=== PATIENT | male | born 1995 | race Caucasian/White ===

== ENCOUNTER 2018-05-27 22:34 | Emergency (ER) | payer OTHER ==
[2018-05-27 22:41] VITALS: BP 132/54; PULSE 81; TEMP 98.3; BMI 27.2
--- NOTE | 2018-05-27 22:55 | PDOC ---
History of Present Illness - General Chief Complaint: Bite Stated Complaint: INSECT BITE Time Seen by Provider: 05/27/18 22:51 - History of Present Illness Initial Comments: 05/27/18 22:53 22 yo M with no significant pmh who p/w bug bite to left chest. Patient reports noticing what he believs was a tick attached to left lateral chest wall approximately 40 minutes [employer]. Attempted removal with tweezers, but states that the head of the bug became impacted in skin. No complaints. Patient denies CORREA, vision change, palpitations, cough, wheezing, orthopena, PND , leg swelling/pain, N/V, F,C, CP, SOB, urinary complaints, hematuria, BPR, abdominal pain, diarrhea, constipation, lightheadedness, weakness, sensory changes. PMHx: as noted above ROS: as noted Allergies: NKDA Past History - Past Medical History Allergies/Adverse Reactions: Allergies Allergy/AdvReac Type Severity Reaction Status Date / Time lactose Allergy Verified 05/27/18 22:41 Home Medications: Ambulatory Orders NK [No Known Home Medication] 05/27/18 COPD: No - Immunization History Immunization Up to Date: Yes - Suicide/Smoking/Psychosocial Hx Smoking History: Never smoked Hx Alcohol Use: No Drug/Substance Use Hx: No Review of Systems - Review of Systems Comments:: 05/27/18 22:54 GENERAL/CONSTITUTIONAL: No fever or chills. No weakness. HEAD, EYES, EARS, NOSE AND THROAT: No change in vision. No ear pain or discharge. No sore throat. CARDIOVASCULAR: No chest pain or shortness of breath RESPIRATORY: No cough, wheezing, or hemoptysis. GASTROINTESTINAL: No nausea, vomiting, diarrhea or constipation. GENITOURINARY: No dysuria, frequency, or change in urination. MUSCULOSKELETAL: No joint or muscle swelling or pain. No neck or back pain. SKIN: No rash NEUROLOGIC: No headache, vertigo, loss of consciousness, or change in strength/ sensation. ENDOCRINE: No increased thirst. No abnormal weight change HEMATOLOGIC/LYMPHATIC: No anemia, easy bleeding, or history of blood clots. ALLERGIC/IMMUNOLOGIC: No hives or skin allergy. *Physical Exam - Vital Signs Last Vital Signs Temp Pulse Resp BP Pulse Ox 98.3 F 81 14 132/54 L 96 05/27/18 22:39 05/27/18 22:39 05/27/18 22:39 05/27/18 22:39 05/27/18 22:39 - Physical Exam Comments: 05/27/18 22:54 GENERAL: Awake, alert, and fully oriented, in no acute distress HEAD: No signs of trauma, normocephalic, atraumatic EYES: PERRLA, EOMI, sclera anicteric, conjunctiva clear ENT: Auricles normal inspection, hearing grossly normal, nares patent, oropharynx clear without exudates. Moist mucosa NECK: Normal ROM, supple, no lymphadenopathy, JVD, or masses LUNGS: No distress, speaks full sentences, clear to auscultation bilaterally HEART: Regular rate and rhythm, normal S1 and S2, no murmurs, rubs or gallops, peripheral pulses normal and equal bilaterally. ABDOMEN: Soft, nontender, normoactive bowel sounds. No guarding, no rebound. No masses EXTREMITIES : Normal inspection, Normal range of motion, no edema. No clubbing or cyanosis. NEUROLOGICAL: Cranial nerves II through XII grossly intact. Normal speech, normal gait, no focal sensorimotor deficits SKIN: +1 mm incision with retained insect part in left inframmamary, lateral, chest wall. slight marginal ertyhema, with absent fluctuance, discharge/ drainage. Warm, Dry, normal turgor, no rashes noted. Medical Decision Making - Medical Decision Making 05/27/18 23:22 22 yo M with no significant pmh who p/w bug bite to left chest. Vitals wnl, Af, A&Ox3. Physical exam notable for impacted head of insect in 1 mm incision in left inframmamary, lateral, chest wall, with retained insect. slight marginal ertyhema, with absent fluctuance, discharge/drainage. No evidence of systemic symptoms, tick born illness. Denies Rash, arthralgias, CORREA, vision change, palpitations, N/V, F,C, CP, SOB, urinary complaints, hematuria, BPR, abdominal pain, diarrhea, constipation, lightheadedness, weakness, sensory changes. ED course: Performed local excision of retained insect from skin 05/27/18 23:26 Counseled patient on monitoring for tick bourne disease. 05/27/18 23:33 Doxycycline 100 mg 05/28/18 00:05 Patient stable for d/c with return precautions. *DC/Admit/Observation/Transfer Diagnosis at time of Disposition: Tick bite Qualifiers: Encounter type: initial encounter Qualified Code(s): W57.XXXA - Bitten or stung by nonvenomous insect and other nonvenomous arthropods, initial encounter - Discharge Dispostion Condition at time of disposition: Stable - Referrals - Patient Instructions Printed Discharge Instructions: DI for Insect Bites and Stings Additional Instructions: Please return to the emergency department with any new or worsening symptoms or concerns. Please follow up with your primary care physician within 72 hours. - Post Discharge Activity
--- NOTE | 2018-05-27 23:07 | PDOC ---
Attending Attestation - HPI HPI: 05/27/18 23:38 The patient is a 22 year old male with no past medical history here today for evaluation of suspected tick bite to the chest. The patient reports that he noticed a tick in his left chest 30 minutes prior to arrival to the ED. He reports trying to take out the tick with tweezers and that the head broke off in his chest. Patient denies headache, lightheadedness. Denies fever, chills. Denies chest pain, shortness of breath. Denies nausea, vomiting, diarrhea, abdominal pain. Allergies: lactose <Luis Aguilar - Last Filed: 05/27/18 23:38> - Physicial Exam PE: 05/28/18 01:51 Agree with resident exam. - Medical Decision Making 05/28/18 01:51 Pt advised regarding target lesions or cellulitis. Pt will be given one dose of doxy here, as he was bitten by a tick [place]. If cellulitis develops, pt should be treated with a course of doxy x 1 week. <Magnolia Kumar - Last Filed: 05/28/18 01:52> Attestations - Attestations 05/27/18 23:39 Documentation prepared by MIGUEL Carnes, acting as medical laboratory technical officer for Magnolia Kumar MD. <Luis Aguilar - Last Filed: 05/27/18 23:38>
[2018-05-27] MEDS ORDERED: DOXYCYCLINE HYCLATE 100 MG CAPSULE PO ONE ×2 (23:33→23:37)
== END 2018-05-28 00:24 | disposition home or self-care (01) ==
LOC: JER 22:34
PROC: 0HC5XZZ Extirpation of Matter from Chest Skin, External Approach (ICD-10-PCS; principal; 2018-05-27)
DX: S20.362A Insect bite (nonvenomous) of left front wall of thorax, initial encounter (principal); S20.352A Superficial foreign body of left front wall of thorax, initial encounter; W57.XXXA Bitten or stung by nonvenomous insect and other nonvenomous arthropods, initial encounter; Y93.89 Activity, other specified; Y92.89 Other specified places as the place of occurrence of the external cause; Y99.8 Other external cause status
CPT/HCPCS: 10120-25; 99282-25